=== PATIENT | female | born 1970 | race Caucasian/White ===

== ENCOUNTER 2018-04-04 10:22 | Day surgery (SDC) | payer OTHER ==
[2018-04-04 08:22] VITALS: BMI 29.5
[2018-04-04] MEDS ORDERED: MIDAZOLAM HCL 2 MG/2 ML SINGLE DOSE VIAL ONE ×2 (12:16)
[2018-04-04] MEDS ORDERED: MIDAZOLAM HCL 2 MG/2 ML SINGLE DOSE VIAL IVPUSH ONE ×2 (12:29→12:34)
[2018-04-04 13:21] VITALS: TEMP 98.1
[2018-04-04 15:54] VITALS: BP 118/72; PULSE 64
--- NOTE | 2018-04-12 17:26 | PATH ---
Surgical Pathology Report Patient Name: MARIVEL RESTREPO [facility]. Rec. #: [id number] /Age/Gender: 1970 (Age: 47) / F Account: [id number] Location: [facility]-ENDOSCOPY Taken: 04/04/2018 Received: 04/05/2018 Reported: 04/12/2018 Physicians: Basil Hoover M.D. Specimen(s) Received LIVER BIOPSY Clinical History Elevated liver function tests Final Diagnosis LIVER, CORE BIOPSY: DIFFUSE STEATOSIS (30%) WITH RARE FOCI OF PERICELLULAR INFLAMMATION, CONSISTENT WITH FATTY LIVER DISEASE, SEE COMMENT. NEGATIVE FOR CHRONIC OR ACTIVE HEPATITIS, CHOLESTASIS, CHOLANGITIS/BILE DUCT INJURY, GRANULOMAS, OR MALIGNANCY. Trichrome stain shows no significant fibrosis. Reticulin stain shows an intact sinusoidal architecture. Iron stain is negative for siderosis. PAS and PAS with diastase stains are negative for [id number] globules and highlight debris with Kupffer cells, see comment. Comment: Fatty liver disease may be associated with diabetes mellitus, metabolic syndromes, obesity, medications, alcohol use, etc. There is no evidence of chronic or active hepatitis or increased numbers of plasma cells (i.e. features of autoimmune hepatitis) in this specimen. PAS with diastase stain highlights PAS-positive, diastase-resistant debris in Kupffer cells, consistent with resolving injury. This may be related to the fatty liver disease or may be due to a resolving drug/toxin-induced injury or resolving infection. Clinical correlation recommended. This case was sent for consultation and work-up to Dr. Erma Brady from [facility], [place], the diagnosis reflects her opinion ([id number]). See [facility] report for additional details ([id number]). Electronically Signed Bernardo Lanier M.D. Gross Description Received in formalin labeled "liver biopsy," are 5 mcekon, cylindrical portions of soft tissue ranging from 0.3-1.1 cm in length and averaging 0.1 cm in diameter. The specimens are submitted in toto in one cassette. /04/05/2018 saudi04/05/2018
== END 2018-04-04 16:10 | disposition home or self-care (01) ==
LOC: JASU-ENDO 10:22
PROVIDERS: ATTEND Internal Medicine Gastroenterology
PROC: 0FB03ZX Excision of Liver, Percutaneous Approach, Diagnostic (ICD-10-PCS; principal; 2018-04-04 11:00)
DX: R94.5 Abnormal results of liver function studies (principal)
CPT/HCPCS: 76942-TC; 84703; 88305-TC; 88313-TC